=== PATIENT | male | born 1965 | race Caucasian/White ===

== ENCOUNTER 2024-05-28 14:05 | Inpatient (IN) ==
[2024-05-28] MEDS ORDERED: VANCOMYCIN CONSULT ACTIVE PRN (15:39)
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
[2024-05-28 16:42] LABS: Basophils # (auto) 0.07 K/uL (0.00-0.20); Basophils % (auto) 0.6 %; Eosinophils # (auto) 0.32 K/uL (0.00-0.50); Eosinophils % (auto) 2.7 %; Hematocrit (blood only) 41.8 % (42.0-52.0); Hemoglobin 13.7 g/dl (14.0-18.0); Immature Granulocytes # (auto) 0.25 K/uL (0.01-0.20); Immature Granulocytes % (auto) 2.1 %; Lymphocytes # (auto) 1.98 K/uL (1.20-3.40); Mean Corpuscular Hgb Conc 32.8 g/dL (32.0-36.0); Mean Corpuscular Volume 88.4 fL (80.0-100.0); Mean Platelet Volume 9.2 fL (9.4-12.4); Monocytes # (auto) 0.73 K/uL (0.11-0.59); Monocytes % (auto) 6.3 %; Neutrophils # (auto) 8.31 K/uL (1.40-6.50); Neutrophils % (auto) 71.3 %; Platelet Count 426 K/uL (130-400); RDW Coefficient of Variation 12.9 % (11.5-14.5); RDW Standard Deviation 41.9 fL (36.4-46.3); Red Blood Count 4.73 M/uL (4.70-6.10); White Blood Count 11.66 K/ul (4.8-10.8)
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
[2024-05-28] MEDS: VANCOMYCIN HCL 2,000 MG in SODIUM CHLORIDE 0.9% 500 ML IV ONE (16:46)
[2024-05-28] MEDS: metroNIDAZOLE 500 MG/100 ML BAG IV STA (16:46)
[2024-05-28] MEDS: CIPROFLOXACIN / D5W 400 MG/200 ML BAG IV STA (16:46)
[2024-05-28 16:57] LABS: Albumin Globulin Ratio 0.9 (0.9-2); Albumin Level 3.6 gm/dl (3.4-5.0); BUN Creatinine Ratio 39.5 (10-20); Bilirubin,Total 0.8 mg/dl (0.2-1.0); Calcium 8.9 mg/dl (8.6-10.3); Creatinine Clr Calc Pharmacy 254.9 ml/min; Globulin 4.2 gm/dl (2.5-4.0); Potassium 4.1 mmol/L (3.5-5.1); Total Protein 7.8 gm/dl (6.0-8.3)
[2024-05-28 17:04] LABS: Prothrombin Time 10.7 Seconds (9.0-12.0)
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
[2024-05-28] MEDS: OPTIRAY 320 125ml IV ONE (17:54)
--- NOTE | 2024-05-28 18:22 | CT Scan Report ---
Exam: Computed tomographic angiography of the abdomen, pelvis, and bilateral lower extremities with contrast Clinical information: Trauma Technique: Axial images obtained of the abdomen, pelvis, and lower extremities through the feet obtained following the injection of contrast media in the arterial phase. Source images reviewed as well as 3D and multi-planar reconstructions. Dose reduction techniques were achieved by using automatic exposure control and/or adjustment of mA and/or kV according to patient size and/or use of iterative reconstruction technique. Comparison: None Findings: Extensive subcutaneous blood products and air subjacent to an open wound about the anterior aspect of the lower leg. No active contrast extravasation within the area. The abdominal aorta is patent. No aortic aneurysm or dissection. Mild calcifications of the aorta and iliac arteries. There are 3 discrete right renal arteries that appear patent. There is a single left renal artery that appears patent. Remaining branches of the aorta appear patent, demonstrating mild scattered atherosclerosis. Moderately calcified internal iliac arteries. Mild multifocal areas of calcification throughout the superficial femoral and popliteal arteries which are patent. Moderately calcified proximal trifurcating arteries in the lower legs. There is good flow in the left lower extremity of the anterior and posterior tibial arteries into the foot. The left peroneal artery demonstrates flow to the ankle. Flow is seen in the right lower leg to the ankle of the posterior tibial and peroneal artery. Good flow is not seen of the anterior tibial artery beyond the level of the upper portion of the lower leg. Abdomen: The liver, spleen, pancreas adrenal glands, kidneys appear normal. The stomach, small and colon appear normal. Cholelithiasis. There is a rim calcified cystic lesion at the mid right kidney measuring 10 cm in length. Additional simple cysts are also seen. No worrisome osseous lesions. No acute bony abnormalities. The bones of the lower legs appear intact. Small fat-containing umbilical hernia and fat-containing inguinal hernias. Lower chest: Lung bases are clear, Impression: Extensive subcutaneous blood products and air related to open wound about the anterior aspect of the left lower leg beginning at the medial lower thigh. No active contrast extravasation to suggest continued hemorrhage. No underlying bony abnormality. The aorta and major branch vessels of the abdominal aorta, as well as the iliac arteries and major arteries of the thigh are patent with scattered atherosclerosis, as above. In the right lower leg, there is loss of flow of the anterior tibial artery at the superior portion of the lower leg, and significant stenosis or occlusion is not excluded. Remaining lower extremity vessels demonstrate flow to the foot or ankle, and do appear tenuous, however noting this may be related to contrast bolus timing. Electronically signed by Arcenio Church 05-28-2024 6:21 PM
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
[2024-05-28] MEDS ORDERED: KETOROLAC 30 MG/ML VIAL IV PRN (21:24)
[2024-05-28] MEDS ORDERED: IBUPROFEN 200 MG TAB PO PRN (21:24)
--- NOTE | 2024-05-28 21:25 | Ultrasound Report ---
Exam(s): US VENOUS LEFT LOWER EXTREMITY EXAM: US Duplex Left Lower Extremity Veins CLINICAL HISTORY: Reason for exam: LLE edema. TECHNIQUE: Real-time duplex ultrasound scan of the left lower extremity veins integrating B-mode two-dimensional vascular structure, Doppler spectral analysis, color flow Doppler imaging and compression. COMPARISON: No relevant prior studies available. FINDINGS: Deep veins: Unremarkable. No DVT in the visualized common femoral, femoral, proximal deep femoral or popliteal veins. The veins demonstrate normal color flow, are normally compressible, with normal phasic flow and/or augmentation response. Superficial veins: Unremarkable. No thrombus in the visualized great saphenous vein. Soft tissues: There is subcutaneous edema in the left calf as well as a focal 5.8 x 1.9 x 2.9 cm subcutaneous fluid collection. No popliteal cyst. IMPRESSION: 1. There is subcutaneous edema in the left calf as well as a focal 5.8 x 1.9 x 2.9 cm subcutaneous fluid collection. Consider seroma versus hematoma or abscess. 2. No evidence of DVT within the left lower extremity. Electronically signed by: Dayne Rodriguez MD 05/28/24 21:24 PM
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
[2024-05-28] MEDS: KETOROLAC TROMETHAMINE 15 MG/ML VIAL IV PRN (22:11)
[2024-05-28] MEDS: ATORVASTATIN 10 MG TAB PO SCH (22:28)
[2024-05-28] MEDS: carvediloL 12.5 MG TAB PO SCH (22:28)
[2024-05-28] MEDS: metroNIDAZOLE 500 MG/100 ML BAG IV SCH (22:28)
[2024-05-29] MEDS: CIPROFLOXACIN / D5W 400 MG/200 ML BAG IV SCH (04:02)
[2024-05-29] MEDS ORDERED: ATROPINE SULFATE 0.1 MG/ML 10ML SYR IV PRN (07:55)
[2024-05-29] MEDS ORDERED: HYDROmorphone INJ 1 MG/ML SYRINGE IV PRN ×2 (07:55→12:47)
[2024-05-29] MEDS ORDERED: fentaNYL citrate PF 100 MCG/2 ML VIAL IV PRN (07:55)
[2024-05-29] MEDS ORDERED: ePHEDrine sulfate 50 MG/ML AMP IV PRN (07:55)
[2024-05-29] MEDS ORDERED: ONDANSETRON INJ 2 MG/ML 2 ML VIAL IV PRN (07:55)
--- NOTE | 2024-05-29 07:55 | Anesthesiology Consultation ---
Date of Service May 29, 2024 Assessment & Plan Chart Review Chart Review: Acceptable Risk for Surgery and Patient NOT seen in Pre Admission Testing Consults Requested none History Surgery Operation Date: 05/29/24 07:00 Proposed Procedures p Left Lower Extremity Wound Debridement - Guille Marie DO Height/Weight Height: 5 ft 10 in Weight: 128.2 kg Allergies Allergy/AdvReac Type Severity Reaction Status Date / Time morphine Allergy Verified 08/05/19 10:54 Penicillins Allergy Verified 08/05/19 10:54 Medications Home Medications Medication Instructions Recorded Confirmed Last Taken amlodipine 10 mg tablet 10 mg PO DAILY 05/28/24 05/28/24 Unknown atorvastatin 10 mg tablet 10 mg PO HS 05/28/24 05/28/24 Unknown carvedilol 12.5 mg tablet 12.5 mg PO BID 05/28/24 05/28/24 Unknown dapagliflozin propanediol 10 mg 10 mg PO DAILY 05/28/24 05/28/24 Unknown tablet (Farxiga) dulaglutide 4.5 mg/0.5 mL 4.5 mg subcut WK 05/28/24 05/28/24 Unknown subcutaneous pen injector ([facility] [place]) gabapentin 100 mg capsule 100 mg PO TID 05/28/24 05/28/24 Unknown tizanidine 4 mg tablet 4 mg PO Q12 PRN Muscle Pain 05/28/24 05/28/24 Unknown valsartan 320 mg tablet 320 mg PO DAILY 05/28/24 05/28/24 Unknown Active Medications Generic Name Dose Route Start Last Admin Trade Name Freq PRN Reason Stop Dose Admin Atorvastatin Calcium 10 mg 05/28/24 21:45 05/28/24 22:28 Atorvastatin 10 Mg Tab PO 06/27/24 21:44 Not Given HS [facility] Carvedilol 12.5 mg 05/28/24 21:45 05/28/24 22:28 Carvedilol 12.5 Mg Tab PO 06/27/24 21:44 Not Given BIDM [facility] Metronidazole 500 mg in 100 mls @ 100 mls/hr 05/28/24 22:00 05/29/24 07:24 Flagyl IV 06/04/24 21:59 Infused Q8H [facility] Infusion Protocol Ciprofloxacin 400 mg in 200 mls @ 100 mls/hr 05/29/24 05:00 05/29/24 06:02 Cipro / D5w IV 06/05/24 04:59 Infused Q12H [facility] Infusion Protocol Ketorolac Tromethamine 15 mg 05/28/24 21:24 05/29/24 07:15 Ketorolac Tromethamine 15 Mg/Ml Vial IV 06/02/24 21:23 15 mg Q6H PRN Administration Pain & Pre PT Past Family History Family History Father Prostate cancer Diabetes Uncle Prostate cancer Mother Diabetes Heart disease Cancer Brother Nephrolithiasis Past Surgical History Surgical History No history of previous surgery Social History Smoking Status: Heavy tobacco smoker Smoking cigarettes per day: 3 packs Hx Alcohol Use: No Hx Substance Use: No Physical Exam Vital Signs Last Vital Signs Temp 36.5 C 05/29/24 06:57 Pulse 82 05/29/24 06:57 Resp 16 05/29/24 06:57 BP 173/73 H 05/29/24 06:57 Pulse Ox 93 05/29/24 06:57 O2 Del Method Room Air 05/29/24 06:57 Testing Laboratory Results 05/28/24 16:22 05/28/24 16:22 PT 10.7 Seconds (9.0-12.0) 05/28/24 16:22 INR 1.0 (0.9-1.1) 05/28/24 16:22 05/29/24 05/28/24 07:32 21:26 POC Glucose 215 H 167 H
[2024-05-29 08:26] LABS: Hematocrit (blood only) 37.4 % (42.0-52.0); Hemoglobin 12.1 g/dl (14.0-18.0); Mean Corpuscular Hemoglobin 28.9 pg (25.0-34.0); Mean Corpuscular Hgb Conc 32.4 g/dL (32.0-36.0); Mean Corpuscular Volume 89.3 fL (80.0-100.0); Platelet Count 408 K/uL (130-400); RDW Coefficient of Variation 13.1 % (11.5-14.5); RDW Standard Deviation 42.8 fL (36.4-46.3); Red Blood Count 4.19 M/uL (4.70-6.10); White Blood Count 9.49 K/ul (4.8-10.8)
[2024-05-29 08:35] LABS: BUN Creatinine Ratio 40.5 (10-20); C Reactive Protein 10.15 mg/dl (0-0.5); Calcium 8.4 mg/dl (8.6-10.3); Creatinine Clr Calc Pharmacy 296.2 ml/min; Potassium 3.9 mmol/L (3.5-5.1)
[2024-05-29] MEDS ORDERED: VALSARTAN 80 MG TAB PO SCH (09:00)
[2024-05-29] MEDS ORDERED: PROPOFOL IV EMULSION 10 MG/ML 20 ML VIAL IV ONE ×2 (09:17→09:22)
[2024-05-29] MEDS ORDERED: SUCCINYLCHOLINE CHLORIDE 20 MG/ML 10 ML VIAL IV ONE (09:17)
[2024-05-29] MEDS ORDERED: ONDANSETRON INJ 2 MG/ML 2 ML VIAL ONE (09:17)
[2024-05-29] MEDS ORDERED: DEXAMETHASONE SOD INJ 4 MG/ML VIAL ONE (09:17)
[2024-05-29] MEDS ORDERED: MIDAZOLAM HCL 1 MG/ML 2ML VIAL ONE (09:18)
[2024-05-29] MEDS ORDERED: fentaNYL citrate PF 100 MCG/2 ML VIAL ONE (09:18)
--- NOTE | 2024-05-29 09:43 | History & Physical Bridge Note ---
Date of Service May 29, 2024 History & Physical Bridge Note I have examined the patient, reviewed the History & Physical and in the interval since the performance of the History & Physical I have noted the following changes of clinical significance: no changes noted
[2024-05-29] MEDS: ALBUT/IPRATROP 3MG/0.5MG NEB 3 ML VIAL NEB STA (09:47)
[2024-05-29] MEDS ORDERED: GLYCOPYRROLATE 0.2 MG/ML VIAL ONE (10:25)
[2024-05-29] MEDS ORDERED: PHENYLEPHRINE HCL 10 MG/ML VIAL ONE (10:44)
[2024-05-29] MEDS ORDERED: ePHEDrine sulfate 50 MG/5 ML SYR ONE (10:44)
[2024-05-29] MEDS ORDERED: PHENYLEPHRINE 100MCG/ML 5ML SYR ONE (10:44)
[2024-05-29 10:52] LABS: Estimated Average Glucose 197 mg/dl; Hemoglobin A1C 8.5 % (4.5-5.6)
[2024-05-29] MEDS: BUPIVACAINE/EPINEPHRINE 0.5% MPF 1:200,000 30 ML VIAL ONE (10:59)
--- NOTE | 2024-05-29 11:08 | Operative Report ---
PG Post Operative Report Pre & Post Diagnosis Operation Date: 05/29/24 07:00 Pre-Op Diagnosis: Left Lower Extremity Cellulitis, Tissue Necrosis Post-Op Diagnosis: Left Lower Extremity Cellulitis, Tissue Necrosis;abcess I identified the patient and participated in the time-out.: Yes Procedure Operation Date: 05/29/24 07:00 Actual Procedures p Left Lower Extremity Wound Debridement(Left) ( sharp debridement including fascia); drainage of lower extremity abcesses x 2- Guille Marie DO Surgeon Guille Marie DO Filbert Grower cam Chin Estimated Blood Loss 50 Findings Consistent with Post-Op Diagnosis Specimens abcess fluid for culture/sensitivity Description of Procedure After informed consent was obtained the patient was taken to the operating room and placed in supine position. After successful placement of a laryngeal mask airway the lower extremity was sterilely prepped and draped in usual fashion. I began with the upper wound. I used a 15 blade scalpel to sharply divide the eschar full-thickness. During this process I immediately encountered a large abscess pocket which appeared to be an abscessed hematoma. After removing all of the eschar I then suctioned out the entire abscess. It did not have a bad odor. This was carried down and the debridement included skin and soft tissue as well as some fascia. We then thoroughly irrigated the wound. This wound measured 7 cm x 4 cm x 1 cm. We did take a sample of the fluid and sent for Gram stain and culture. I used exact same technique for the lower wound. Again after sharply debriding the black eschar we encountered an abscess cavity. I remove the eschar full-thickness which again included skin subcutaneous tissue and some fascia. We thoroughly irrigated this wound as well. This wound measured 16 cm x 6 cm x 2 cm. We packed both wounds with 1 inch iodoform packing. Gauze 4 x 4's, ABD pads, and gauze Stephanie were used as a dressing. The patient was awakened extubated and transferred to recovery in stable condition. My physician assistant engineer was present for the entire case and assisted in all aspects of the procedure. I attest to the content of the Intraoperative Record and any orders documented therein. Any exceptions are noted below.
--- NOTE | 2024-05-29 11:59 | Anesthesiology Progress Note ---
Date of Service May 29, 2024 Anesthesia Post Procedure Vital Signs Vital Signs: Temp Pulse Pulse Pulse Resp BP BP 05/29/24 11:55 36.7 C 87 17 130/69 05/29/24 11:45 86 20 119/77 05/29/24 11:35 87 17 118/68 05/29/24 11:25 88 20 110/66 05/29/24 11:15 90 19 112/71 05/29/24 11:06 36.0 C L 94 H 18 108/64 05/29/24 09:47 81 16 05/29/24 09:17 36.9 C 81 20 154/98 H 05/29/24 06:57 36.5 C 82 16 173/73 H 05/28/24 22:14 36.8 C 86 20 156/56 H 05/28/24 20:52 36.7 C 78 20 170/90 H 05/28/24 18:07 84 16 143/82 H 05/28/24 17:01 85 18 135/81 05/28/24 14:20 36.8 C 87 20 142/77 H Pulse Ox O2 Del Method O2 Flow Rate 05/29/24 11:55 95 Nasal Cannula 2 05/29/24 11:45 93 Nasal Cannula 2 05/29/24 11:35 96 Nasal Cannula 2 05/29/24 11:25 92 Nasal Cannula 4 05/29/24 11:15 97 Nasal Cannula 4 05/29/24 11:06 90 Nasal Cannula 4 05/29/24 09:47 92 Room Air 05/29/24 09:17 92 Room Air 05/29/24 06:57 93 Room Air 05/28/24 22:14 92 Room Air 05/28/24 20:52 94 Room Air 05/28/24 18:07 93 Room Air 05/28/24 17:01 96 Room Air 05/28/24 14:20 94 Room Air Pain Intensity Left Calf: Pain Intensity: 4 Transfer of Care Handoff Completed per policy Notes Mental Status: alert / awake / arousable Patient Amnestic to Procedure: Yes Nausea / Vomiting: adequately controlled Pain: adequately controlled Airway Patency, RR, SpO2: stable & adequate BP & HR: stable & adequate Hydration State: stable & adequate Anesthetic Complications: no major complications apparent and Pt Satisfied with anesthetic care
[2024-05-29] MEDS ORDERED: MoRPHine SULFATE 2 MG/ML CARP IV PRN (12:10)
[2024-05-29] MEDS ORDERED: MoRPHine SULFATE 4 MG/ML 1 ML CARP\\VIAL IV PRN (12:10)
[2024-05-29] MEDS: amLODIPine BESYLATE 5 MG TAB PO SCH (12:44)
[2024-05-29] MEDS: GABAPENTIN 100 MG CAP PO SCH (12:44)
[2024-05-29] MEDS ORDERED: GLUCOSE 40% GEL 15 GM TUBE PO PRN (12:45)
[2024-05-29] MEDS ORDERED: CARBOHYDRATES FOR HYPOGLYCEMIA PO PRN (12:45)
[2024-05-29] MEDS ORDERED: GLUCOSE 10 TAB/TUBE PO PRN (12:45)
[2024-05-29] MEDS ORDERED: DEXTROSE 50% 50 ML SYRINGE IV PRN (12:45)
[2024-05-29] MEDS ORDERED: GLUCAGON FOR INJ 1 MG VIAL SQ PRN (12:45)
[2024-05-29] MEDS: INSULIN ASPART PER UNIT CHARGE SC ONE (13:26)
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
[2024-05-29] MEDS: DAPTOmycin 400 MG in SYRINGE 0 ML IV SCH (16:34)
[2024-05-29] MEDS: INSULIN ASPART PER UNIT CHARGE SC SCH ×2 (17:13→20:35)
[2024-05-29] MEDS ORDERED: PHARMACY GLYCEMIC MGMT CONSULT PRN (17:47)
[2024-05-29] MEDS: LANTUS PER UNIT CHARGE SC SCH (19:59)
[2024-05-30] MEDS: INSULIN ASPART PER UNIT CHARGE SC SCH (00:09)
[2024-05-30] MEDS: oxyCODONE HCL IR 5 MG TAB (IMMEDIATE RELEASE) PO PRN (06:21)
[2024-05-30 07:35] LABS: Hematocrit (blood only) 34.6 % (42.0-52.0); Hemoglobin 11.5 g/dl (14.0-18.0); Mean Corpuscular Hemoglobin 29.3 pg (25.0-34.0); Mean Corpuscular Hgb Conc 33.2 g/dL (32.0-36.0); Mean Corpuscular Volume 88.3 fL (80.0-100.0); Platelet Count 409 K/uL (130-400); RDW Coefficient of Variation 12.7 % (11.5-14.5); RDW Standard Deviation 41.1 fL (36.4-46.3); Red Blood Count 3.92 M/uL (4.70-6.10); White Blood Count 10.37 K/ul (4.8-10.8)
[2024-05-30 07:50] LABS: BUN Creatinine Ratio 38.9 (10-20); C Reactive Protein 5.53 mg/dl (0-0.5); Calcium 8.2 mg/dl (8.6-10.3); Creatinine Clr Calc Pharmacy 326.6 ml/min; Potassium 3.8 mmol/L (3.5-5.1)
[2024-05-30] MEDS: LANTUS PER UNIT CHARGE SC SCH ×2 (08:34→21:08)
--- NOTE | 2024-05-30 08:55 | Surgery Progress Note ---
Date of Service May 30, 2024 Assessment & Plan (1) Leg wound, left: Plan: POD#1 left lower extremity wound debridement WBC 10.3, Hbg 11.5. Vital signs are stable OR cultures are pending, he remains on IV abx He is overall doing well post op and dressings remain in place Wound care consult has been placed for consideration of vac placement & dressing recommendations Will need case management on board for d/c planning Admission and Anticipated Discharge Date Admission Date: May 28, 2024 Subjective Patient is doing okay. Does have some expected post op pain that is being managed with pain meds. Otherwise dressing has remained in tact overnight and has no other complaints. Physical Exam Physical Exam: awake/alert, no distress Respiratory: normal respiratory effort Skin: LLE surgical dressing remains in place (1" iodoform packing, gauze/ABD/ and jonathon wrap) Results & Data Vital Signs (Past 12 Hours) Vital Signs Temp Pulse Resp BP Pulse Ox O2 Del Method 05/30/24 07:22 97.3 F L 73 16 151/85 H 91 Room Air 05/30/24 04:19 98.1 F 72 18 150/76 H 92 Room Air 05/29/24 23:00 97.7 F 69 18 144/81 H 93 Room Air PG Care Time/CCT Total # of Minutes Spent Total Time Spent with Patient: Total time spent is greater than 50% in coordination of care (as documented) at patient's floor/unit and/or counseling patient: Coding Level of Care Code 14335 Post Operative Follow-Up Diagnoses Leg wound, left S81.802A
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
[2024-05-30] MEDS: ENOXAPARIN INJ 40 MG/0.4 ML SYR SQ SCH (09:10)
[2024-05-30] MEDS: HYDROmorphone INJ 0.5 MG/0.5 ML SYR IV PRN (13:31)
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
[2024-05-31 07:32] LABS: Hematocrit (blood only) 37.3 % (42.0-52.0); Hemoglobin 12.7 g/dl (14.0-18.0); Mean Platelet Volume 8.6 fL (9.4-12.4); Platelet Count 426 K/uL (130-400); RDW Coefficient of Variation 12.8 % (11.5-14.5); RDW Standard Deviation 41.2 fL (36.4-46.3); Red Blood Count 4.24 M/uL (4.70-6.10); White Blood Count 10.25 K/ul (4.8-10.8)
[2024-05-31 07:59] LABS: BUN Creatinine Ratio 29.7 (10-20); C Reactive Protein 2.73 mg/dl (0-0.5); Calcium 8.4 mg/dl (8.6-10.3); Creatinine Clr Calc Pharmacy 317.7 ml/min; Potassium 3.9 mmol/L (3.5-5.1)
[2024-05-31] MEDS: LANTUS PER UNIT CHARGE SC SCH (08:55)
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
--- NOTE | 2024-05-31 12:12 | Surgery Progress Note ---
Date of Service May 31, 2024 Assessment & Plan (1) Leg wound, left: Plan: POD#2 left lower extremity wound debridement WBC 10.2. Pt afebrile OR cultures thus far growing staph aureus, he remains on IV abx He is overall doing and an irrigating wound vac was placed yesterday Appreciate wound care's assistance, will need set up for wound vac at home Will need case management on board for d/c planning We are okay with discharge once home vac approved in addition to home health vs. wound care center f/u is established Abx will be adjusted pending sensitivities per medicine we will sign off at this time, please call with any questions/concerns. may f/u in 1-2 weeks in the office for check up Admission and Anticipated Discharge Date Admission Date: May 28, 2024 Subjective Patient is feeling well. Has wound vac in place. Some post op pain expected but is manageable. Physical Exam Physical Exam: awake/alert, no distress Musculoskeletal: LLE with irrigating wound vac in place Results & Data Vital Signs (Past 12 Hours) Vital Signs Temp Pulse Resp BP Pulse Ox O2 Del Method 05/31/24 07:45 Room Air 05/31/24 07:18 98.1 F 70 16 163/87 H 93 Room Air PG Care Time/CCT Total # of Minutes Spent Total Time Spent with Patient: Total time spent is greater than 50% in coordination of care (as documented) at patient's floor/unit and/or counseling patient: Coding Level of Care Code 37498 Post Operative Follow-Up Diagnoses Leg wound, left S81.802A
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
[2024-06-01 07:36] LABS: Hematocrit (blood only) 37.4 % (42.0-52.0); Hemoglobin 12.4 g/dl (14.0-18.0); Mean Corpuscular Hgb Conc 33.2 g/dL (32.0-36.0); Mean Corpuscular Volume 87.4 fL (80.0-100.0); Mean Platelet Volume 8.5 fL (9.4-12.4); Platelet Count 433 K/uL (130-400); Red Blood Count 4.28 M/uL (4.70-6.10); White Blood Count 10.33 K/ul (4.8-10.8)
[2024-06-01 08:14] LABS: BUN Creatinine Ratio 26.7 (10-20); Calcium 8.4 mg/dl (8.6-10.3); Creatinine Clr Calc Pharmacy 261.2 ml/min
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
[2024-06-01] MEDS: INSULIN ASPART PER UNIT CHARGE SC SCH (12:27)
[2024-06-01] MEDS: ACETAMINOPHEN 325 MG TAB PO PRN (12:31)
[2024-06-01] MEDS: metroNIDAZOLE 500 MG/100 ML BAG IV SCH (12:32)
[2024-06-02 07:20] LABS: Hematocrit (blood only) 37.6 % (42.0-52.0); Hemoglobin 12.2 g/dl (14.0-18.0); Mean Corpuscular Hemoglobin 28.9 pg (25.0-34.0); Mean Corpuscular Hgb Conc 32.4 g/dL (32.0-36.0); Mean Corpuscular Volume 89.1 fL (80.0-100.0); Mean Platelet Volume 8.5 fL (9.4-12.4); Platelet Count 445 K/uL (130-400); RDW Standard Deviation 41.8 fL (36.4-46.3); Red Blood Count 4.22 M/uL (4.70-6.10); White Blood Count 11.25 K/ul (4.8-10.8)
[2024-06-02 07:39] LABS: Calcium 8.5 mg/dl (8.6-10.3); Creatinine Clr Calc Pharmacy 235.1 ml/min; Potassium 4.5 mmol/L (3.5-5.1)
[2024-06-02] MEDS: oxyCODONE HCL IR 5 MG TAB (IMMEDIATE RELEASE) PO PRN (07:59)
[2024-06-02] MEDS: INSULIN ASPART PER UNIT CHARGE SC SCH (08:14)
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
[2024-06-03 07:32] LABS: Basophils # (auto) 0.07 K/uL (0.00-0.20); Basophils % (auto) 0.7 %; Eosinophils # (auto) 0.36 K/uL (0.00-0.50); Eosinophils % (auto) 3.4 %; Hematocrit (blood only) 36.6 % (42.0-52.0); Immature Granulocytes # (auto) 0.07 K/uL (0.01-0.20); Immature Granulocytes % (auto) 0.7 %; Lymphocytes # (auto) 2.35 K/uL (1.20-3.40); Lymphocytes % (auto) 22.1 %; Mean Corpuscular Hemoglobin 29.1 pg (25.0-34.0); Mean Corpuscular Hgb Conc 32.8 g/dL (32.0-36.0); Mean Corpuscular Volume 88.8 fL (80.0-100.0); Mean Platelet Volume 8.4 fL (9.4-12.4); Monocytes # (auto) 0.97 K/uL (0.11-0.59); Monocytes % (auto) 9.1 %; Neutrophils # (auto) 6.82 K/uL (1.40-6.50); Platelet Count 399 K/uL (130-400); RDW Coefficient of Variation 13.2 % (11.5-14.5); RDW Standard Deviation 43.1 fL (36.4-46.3); Red Blood Count 4.12 M/uL (4.70-6.10); White Blood Count 10.64 K/ul (4.8-10.8)
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
[2024-06-04 06:51] VITALS: BP 128/69; PULSE 62; RESP 18; TEMP 97.7; O2SAT 95
[2024-06-04] MEDS ORDERED: Nursing to Pharmacy Communication SCH (12:15)
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
== END 2024-06-04 15:32 | disposition home health service (06) | DRG 571 ==
LOC: ED 14:05 → 3N 20:11 → SUATTDRO 20:11 → 3N 20:52

== ENCOUNTER 2024-06-12 15:56 | Inpatient (IN) ==
[2024-06-12 16:28] LABS: Basophils # (auto) 0.07 K/uL (0.00-0.20); Basophils % (auto) 0.7 %; Eosinophils # (auto) 0.32 K/uL (0.00-0.50); Eosinophils % (auto) 3.4 %; Hematocrit (blood only) 43.9 % (42.0-52.0); Hemoglobin 14.4 g/dl (14.0-18.0); Immature Granulocytes # (auto) 0.05 K/uL (0.01-0.20); Immature Granulocytes % (auto) 0.5 %; Lymphocytes # (auto) 2.49 K/uL (1.20-3.40); Lymphocytes % (auto) 26.1 %; Mean Corpuscular Hemoglobin 29.6 pg (25.0-34.0); Mean Corpuscular Hgb Conc 32.8 g/dL (32.0-36.0); Mean Corpuscular Volume 90.1 fL (80.0-100.0); Mean Platelet Volume 9.6 fL (9.4-12.4); Monocytes # (auto) 0.81 K/uL (0.11-0.59); Monocytes % (auto) 8.5 %; Neutrophils % (auto) 60.8 %; Platelet Count 307 K/uL (130-400); RDW Coefficient of Variation 14.6 % (11.5-14.5); RDW Standard Deviation 46.6 fL (36.4-46.3); Red Blood Count 4.87 M/uL (4.70-6.10); White Blood Count 9.54 K/ul (4.8-10.8)
[2024-06-12 16:42] LABS: Alanine Aminotransferase 14 U/L (7-52); Albumin Globulin Ratio 1.2 (0.9-2); Albumin Level 3.8 gm/dl (3.4-5.0); Alkaline Phosphatase 46 U/L (34-104); Anion Gap 5 (3-11); Aspartate Aminotransferase 15 U/L (13-39); Bilirubin,Total 0.4 mg/dl (0.2-1.0); Blood Urea Nitrogen 12 mg/dl (6-23); Carbon Dioxide 29 mmol/L (21-32); Chloride 104 mmol/L (98-107); Globulin 3.2 gm/dl (2.5-4.0); Glucose 142 mg/dl (70-99(Fasting)); Potassium 4.1 mmol/L (3.5-5.1); Sodium 138 mmol/L (136-145)
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
[2024-06-12] MEDS: cefTRIAXone SODIUM 2,000 MG/50 ML BAG IV STA (20:44)
[2024-06-12] MEDS: metroNIDAZOLE 500 MG/100 ML BAG IV STA (20:47)
[2024-06-12] MEDS ORDERED: POLYETHYLENE (MIRALAX) 17 GM PACK PO PRN (23:59)
[2024-06-12] MEDS ORDERED: GLUCOSE 40% GEL 15 GM TUBE PO PRN (23:59)
[2024-06-12] MEDS ORDERED: GLUCOSE 10 TAB/TUBE PO PRN (23:59)
[2024-06-12] MEDS ORDERED: tiZANidine HCL 4 MG TABLET PO PRN (23:59)
[2024-06-12] MEDS ORDERED: ONDANSETRON INJ 2 MG/ML 2 ML VIAL IV PRN (23:59)
[2024-06-12] MEDS ORDERED: ACETAMINOPHEN 325 MG TAB PO PRN (23:59)
[2024-06-12] MEDS ORDERED: CARBOHYDRATES FOR HYPOGLYCEMIA PO PRN (23:59)
[2024-06-12] MEDS ORDERED: GLUCAGON FOR INJ 1 MG VIAL SQ PRN (23:59)
[2024-06-12] MEDS ORDERED: DEXTROSE 50% 50 ML SYRINGE IV PRN (23:59)
[2024-06-13] MEDS: oxyCODONE HCL IR 5 MG TAB (IMMEDIATE RELEASE) PO PRN (00:23)
[2024-06-13] MEDS: INSULIN ASPART PER UNIT CHARGE SC SCH (00:30)
[2024-06-13] MEDS: ATORVASTATIN 10 MG TAB PO SCH (00:31)
[2024-06-13] MEDS: GABAPENTIN 100 MG CAP PO SCH (00:31)
[2024-06-13] MEDS: carvediloL 12.5 MG TAB PO SCH (00:31)
[2024-06-13] MEDS: metroNIDAZOLE 500 MG/100 ML BAG IV SCH (04:51)
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
[2024-06-13] MEDS: LANTUS PER UNIT CHARGE SQ SCH (08:45)
[2024-06-13] MEDS: VALSARTAN 80 MG TAB PO SCH (08:47)
[2024-06-13] MEDS: amLODIPine BESYLATE 5 MG TAB PO SCH (08:48)
[2024-06-13 09:27] LABS: Hemoglobin 13.4 g/dl (14.0-18.0); Mean Corpuscular Hemoglobin 29.5 pg (25.0-34.0); Mean Corpuscular Hgb Conc 32.7 g/dL (32.0-36.0); Mean Corpuscular Volume 90.1 fL (80.0-100.0); Mean Platelet Volume 9.8 fL (9.4-12.4); Platelet Count 257 K/uL (130-400); RDW Coefficient of Variation 14.7 % (11.5-14.5); RDW Standard Deviation 47.6 fL (36.4-46.3); Red Blood Count 4.55 M/uL (4.70-6.10); White Blood Count 8.29 K/ul (4.8-10.8)
[2024-06-13 09:31] LABS: Calcium 8.9 mg/dl (8.6-10.3); Creatinine Clr Calc Pharmacy 264.2 ml/min; Potassium 4.1 mmol/L (3.5-5.1)
--- NOTE | 2024-06-13 11:31 | Surgery Progress Note ---
Date of Service June 13, 2024 Assessment & Plan (1) Traumatic open wound of left lower leg: Plan 58M with traumatic LLE wound presented at the direction of outpatient wound care practitioners for the concern of infection when wound vac was last removed. Wet to dry dressings were initiated at that time. This wound would benefit from some debridement in the OR. Plan for OR debridement tomorrow. Patient is agreeable this am and will obtain consent. NPO after MN. Continue other modes of medical management that have been initiated. Admission and Anticipated Discharge Date Admission Date: June 12, 2024 Subjective I have seen and examined this patient this am. He denies N/V, F/C Physical Exam Constitutional: + obese; not ill appearing, not in distr ess and not diaphoretic Respiratory: normal respiratory effort; no respiratory distress, no labored breathing and does not use accessory muscles Skin: LLE with wound at anterior tibial region Wound down to musce centrally Areas of necrotic fat and sloughed debris are evident this am Results & Data Vital Signs (Past 12 Hours) Vital Signs Temp Pulse Resp BP BP Pulse Ox O2 Del Method 06/13/24 06:56 36.7 C 71 16 148/81 H 91 Room Air 06/13/24 00:09 36.6 C 76 18 159/96 H 96 Room Air PG Care Time/CCT Total # of Minutes Spent Total Time Spent with Patient: Total time spent is greater than 50% in coordination of care (as documented) at patient's floor/unit and/or counseling patient: Coding Level of Care Code 38711 SUB INP/OBS CARE 06/15MIN Diagnoses Traumatic open wound of left lower leg, subsequent encounter S81.802D Encounter type: subsequent encounter (1) Traumatic open wound of left lower leg Encounter type: subsequent encounter Qualified Code(s): S81.802D - Unspecified open wound, left lower leg, subsequent encounter
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
[2024-06-13] MEDS: MEROPENEM 500 MG in SYRINGE 0 ML IV SCH (15:43)
[2024-06-13] MEDS: CLINDAMYCIN/D5W 600 MG/50 ML BAG IV SCH (15:48)
[2024-06-13] MEDS: ENOXAPARIN INJ 60 MG/0.6 ML SYR SQ ONE (16:29)
[2024-06-13] MEDS ORDERED: cefTRIAXone SODIUM 2,000 MG/50 ML BAG IV SCH (19:00)
[2024-06-13] MEDS ORDERED: Nursing to Pharmacy Communication SCH (20:45)
[2024-06-14] MEDS ORDERED: Nursing to Pharmacy Communication SCH (06:15)
[2024-06-14] MEDS: INSULIN ASPART PER UNIT CHARGE SC SCH ×2 (06:15→21:07)
--- NOTE | 2024-06-14 08:01 | Hospitalist Progress Note ---
Date of Service June 14, 2024 Assessment & Plan (1) Wound of left lower extremity: Plan: 58yo male presenting with LLE wound. Initial trauma 05/17 but waited til 05/28 to present to ER here and had necrotic tissue and underwent debridement in OR on 05/29 for drainage [address] Marie and dc on Doxy/Flagyl to complete course but was seen by wound care during home health visit with concerns for progression/infection needing intervention and sent to ER. Notable his procal on admission was 1.84 and no blood cultures noted but was trending down/0.29 prior to discharge but do have concerns for possible issue w/ longer standing infection prior to presentation along with possible inadequate coverage for OR culture 05/29 with staph auresus, paeniclostridium sordelli, anaerobic gram positive bacilli Surgery consulted, discussed with Dr Colmenares and wound care AM 06/13 given necrotic tissue/need for debridement prior to wound vac and plan for OR in AM 06/14 for debridement and wound care to follow Sent for blood cultures 06/13 -- pending. notable procal checked and to 0.03 from prior elevations and was done for completeness ID consulted/discussed with on 06/13 Ceftriaxone/Flagyl IV ordered concerns given OR culture/procal last admission CHANGED ABX 06/13 --> Ceftriaxone --> MEROPENEM (no issues reported, hx PCN allergy, unable to utilize ZOSYN), Ceftriaxone not ideal for MSSA --> Flagyl --> CLINDAMYCIN Pain control: APAP/oxycodone, tolerated dilaudid and 0.5mg for breakthrough but also given 15mg IV toradol this morning and can continue (reported helpful) +BM this morning, monitor on abx IVF @ 80cc/hr for now, OR planned for this afternoon. DVT proph: was given Lovenox SQ x 1 on 06/13, defer ongoing until determined safe to resume from surgery Wound RN to f/u following, likely placement for wound vac Monitor labs/exam, follow inflammatory markers from today in next 48hrs PT/OT consulted, he is agreeable to rehab if needed Smoking cessation encouraged (2) Cellulitis: Plan: 2nd to above, improving w/ treatment but needing debridement and for OR today (3) Hypertension: Plan: BP stable 129/77- continued on coreg 12.5mg BID, valsartan 320mg daily, amlodipine 10mg daily Placed orders to hold valsartan for AM 06/15 post op and can resume if BP stable w/ stable renal function (4) Diabetes mellitus, type 2: Plan: A1c 8.5 this month On farxiga at baseline, on hold for now BSG AC/HS and sliding scale insulin have been ordered BSGs appear stable at this time and will continue current goal range/parameters/monitor to adjust if needed for better control/wound healing but did have nursing give half dose this AM given NPO for OR status and will continue to monitor Continue Gabapentin 100mg po TID, B12 borderline 346 and PO supp started in am/would continue at dc (5) Traumatic open wound of left lower leg: Plan Chronic Medical Conditions Hyperlipidemia-Continue Atorvastatin 10mg po qHS, lipids checked/increased to 20mg HS for risk prevention. Monitor in f/u Dispo: NPO for OR this afternoon, will need continued wound care/likely wound vac, PT/OT consults to follow and rehab if rec'd as patient agreeable DVT proph: Lovenox as outlined, resume in AM if ok per surgery Admission and Anticipated Discharge Date Admission Date: June 13, 2024 Supervising Physician Co-Signing Physician Notes The patient was not seen by me. The chart was reviewed. Case discussed with NUHA Quick. Agree with assessment and plan Subjective Evaluated this morning, clarified w/ surgery ok to take AM meds w/ sip water. IVF added while NPO. No rash/issues w/ meropenem and remains on w/ clinda per ID. Was given dose oxy/toradol for pain w/ reported improvement. Tolerated Dilaudid in past/allergy to morphine and discussed Dilaudid will be available. F/u cxs/exam, wound vac likely/wound RN to follow up. Needing to move his bowels, RN notified. Discussed w/ therapy for evals in AM, NWB for now (crutches in room), likely WBAT but cautious use for now. Agreeable to rehab if needed. Questions/concerns addressed at this time. Physical Exam 2 Physical Exam: General: 58 yo obese male sitting up in bed, NAD, pain improved since medications this morning, waiting OR/needing to move his bowels HEENT: head atraumatic, normocephalic, mmm, trachea midline Resp: even/unlabored, diminished in the bases but no wheezing/rales, 94% on AX CV: RRR, no significant m/r/g, edema to affected leg but cap refill wnl, pulses present GI: +BS, obese, slight distension but SOFT/NT : no waite MSK/Neuro: LLE with 2 wounds noted: anterior tibial region down to muscle/fascia on medial aspect prior noted w/ lateral aspect w/ necrotic tissue suspected benefit from debridement anterior thigh wound w/ scant necrotic tissue DRESSED TODAY, did note remove as for OR this morning but c/d/i, sensation present, pulses present, erythema appears to be improving Psych: AOx3, cooperative with exam Results & Data Results & Data Vital Signs (Past 12 Hours) Vital Signs Temp Pulse Resp BP BP Pulse Ox O2 Del Method 06/14/24 07:04 36.5 C 68 16 124/70 93 Room Air 06/13/24 22:44 Room Air 06/13/24 19:58 36.7 C 64 18 128/67 92 Room Air Laboratory Results 06/14/24 07:55 06/14/24 07:55 ESR 40 CRP 1.01 Lipids: TRG 220, Cholesterol 98, LDL 25, HDL 29 B12 326 Folate 11.03 Iron panel> Fe 45, TIBC 225, transferrin 161, %sat 20, ferritin 234 Mag 1.8 PG Care Time/CCT Total # of Minutes Spent Total Time Spent with Patient: Total time spent is greater than 50% in coordination of care (as documented) at patient's floor/unit and/or counseling patient: Coding Level of Care Code 98124 SUB INP/OBS CARE 3/50MIN Diagnoses Wound of left lower extremity S81.802A Encounter type: initial encounter Cellulitis L03.90 Site of cellulitis: unspecified site Hypertension I10 Diabetes mellitus, type 2 E11.9 Traumatic open wound of left lower leg, subsequent encounter S81.802D Encounter type: subsequent encounter (1) Wound of left lower extremity Encounter type: initial encounter Qualified Code(s): S81.802A - Unspecified open wound, left lower leg, initial encounter (2) Cellulitis Site of cellulitis: unspecified site Qualified Code(s): L03.90 - Cellulitis, unspecified (5) Traumatic open wound of left lower leg Encounter type: subsequent encounter Qualified Code(s): S81.802D - Unspecified open wound, left lower leg, subsequent encounter
[2024-06-14] MEDS: SODIUM CHLORIDE 0.9% 1,000 ML IV SCH (08:13)
[2024-06-14] MEDS: KETOROLAC TROMETHAMINE 15 MG/ML VIAL IV ONE (08:20)
[2024-06-14 08:40] LABS: Basophils # (auto) 0.05 K/uL (0.00-0.20); Basophils % (auto) 0.6 %; Eosinophils # (auto) 0.17 K/uL (0.00-0.50); Hematocrit (blood only) 39.4 % (42.0-52.0); Immature Granulocytes # (auto) 0.02 K/uL (0.01-0.20); Immature Granulocytes % (auto) 0.2 %; Lymphocytes # (auto) 2.09 K/uL (1.20-3.40); Lymphocytes % (auto) 24.8 %; Mean Corpuscular Hemoglobin 29.1 pg (25.0-34.0); Mean Corpuscular Volume 88.3 fL (80.0-100.0); Mean Platelet Volume 9.6 fL (9.4-12.4); Monocytes # (auto) 0.79 K/uL (0.11-0.59); Monocytes % (auto) 9.4 %; Platelet Count 228 K/uL (130-400); RDW Coefficient of Variation 14.8 % (11.5-14.5); RDW Standard Deviation 47.1 fL (36.4-46.3); Red Blood Count 4.46 M/uL (4.70-6.10); White Blood Count 8.42 K/ul (4.8-10.8)
[2024-06-14 09:01] LABS: BUN Creatinine Ratio 27.9 (10-20); C Reactive Protein 1.01 mg/dl (0-0.5); Calcium 8.9 mg/dl (8.6-10.3); Chol HDL Ratio 3.4 (0-5); Creatinine Clr Calc Pharmacy 270.4 ml/min; Magnesium 1.8 mg/dl (1.7-2.4); Potassium 3.8 mmol/L (3.5-5.1)
[2024-06-14 09:17] LABS: Ferritin 234.1 ng/ml (8-388)
[2024-06-14 09:24] LABS: Folate (Folic Acid),Ser orPlas 11.03 ng/ml (>5.38)
[2024-06-14] MEDS ORDERED: fentaNYL citrate PF 100 MCG/2 ML VIAL ONE (11:15)
[2024-06-14] MEDS ORDERED: MIDAZOLAM HCL 1 MG/ML 2ML VIAL ONE (11:15)
[2024-06-14] MEDS ORDERED: LIDOCAINE 2% 2 ML VIAL/AMP(20MG/ML) INFIL ONE ×2 (11:17)
[2024-06-14] MEDS ORDERED: PROPOFOL IV EMULSION 10 MG/ML 20 ML VIAL IV ONE (11:18)
--- NOTE | 2024-06-14 11:29 | History & Physical Bridge Note ---
Date of Service June 14, 2024 History & Physical Bridge Note I have examined the patient, reviewed the History & Physical and in the interval since the performance of the History & Physical I have noted the following changes of clinical significance: no changes noted. The patient will be taken to the OR today for left lower leg wound debridement
[2024-06-14] MEDS: LACTATED RINGER'S 1,000 ML IV SCH (12:36)
--- NOTE | 2024-06-14 12:44 | Anesthesiology Consultation ---
Date of Service June 14, 2024 Assessment & Plan Chart Review Chart Review: Acceptable Risk for Surgery Consults Requested none History Surgery Operation Date: 06/14/24 13:00 Proposed Procedures p Left Leg Wound Debridement - Robbie Colmenares DO Height/Weight Height: 6 ft 3 in Weight: 125.373 kg Allergies Allergy/AdvReac Type Severity Reaction Status Date / Time morphine Allergy Severe Swelling Verified 06/14/24 12:25 of Lip/Tongue/Throat Penicillins Allergy Severe Swelling Verified 06/14/24 12:25 of Lip/Tongue/Throat Medications Home Medications Medication Instructions Recorded Confirmed Last Taken amlodipine 10 mg tablet 10 mg PO DAILY 05/28/24 06/12/24 Unknown atorvastatin 10 mg tablet 10 mg PO HS 05/28/24 06/12/24 Unknown carvedilol 12.5 mg tablet 12.5 mg PO BID 05/28/24 06/12/24 Unknown dapagliflozin propanediol 10 mg 10 mg PO DAILY 05/28/24 06/12/24 Unknown tablet (Farxiga) dulaglutide 4.5 mg/0.5 mL 4.5 mg subcut WK 05/28/24 06/12/24 Unknown subcutaneous pen injector ([facility]) gabapentin 100 mg capsule 100 mg PO TID 05/28/24 06/12/24 Unknown tizanidine 4 mg tablet 4 mg PO Q12 PRN Muscle Pain 05/28/24 06/12/24 Unknown valsartan 320 mg tablet 320 mg PO DAILY 05/28/24 06/12/24 Unknown oxycodone 5 mg tablet 5 - 10 mg (1 - 2 x 5 mg) PO 05/31/24 06/12/24 Unknown .[id number] PRN pain, for initial therapy, max 6 tabs per day #15 tabs doxycycline hyclate 100 mg capsule 100 mg PO BID 21 days #42 caps 06/04/24 06/12/24 Unknown metronidazole 500 mg tablet 500 mg PO Q8H 21 days #63 tabs 06/04/24 06/12/24 Unknown Active Medications Generic Name Dose Route Start Last Admin Trade Name Freq PRN Reason Stop Dose Admin Amlodipine Besylate 10 mg 06/13/24 09:00 06/14/24 08:10 Amlodipine Besylate 5 Mg Tab PO 07/13/24 08:59 10 mg DAILY ELISABET Administration Carvedilol 12.5 mg 06/12/24 23:59 06/14/24 08:10 Carvedilol 12.5 Mg Tab PO 07/12/24 23:58 12.5 mg BID ELISABET Administration Gabapentin 100 mg 06/12/24 23:59 06/14/24 08:11 Gabapentin 100 Mg Cap PO 07/12/24 23:58 100 mg TID ELISABET Administration Meropenem 500 mg/ Syringe 10 mls @ 2 mls/min 06/13/24 15:30 06/14/24 09:22 IV 06/20/24 15:29 2 mls/min Q6H ELISABET Administration Protocol Clindamycin Phosphate 600 mg in 50 mls @ 100 mls/hr 06/13/24 15:30 06/14/24 08:45 Cleocin/D5w IV 06/20/24 15:29 Infused Q8H ELISABET Infusion Sodium Chloride 1,000 mls @ 80 mls/hr 06/14/24 08:00 06/14/24 08:13 Nss IV 06/15/24 07:59 80 mls/hr .[id number] ELISABET Administration Lactated Ringer's 1,000 mls @ 15 mls/hr 06/14/24 12:45 06/14/24 12:36 Lr IV 06/15/24 12:44 15 mls/hr .Q24H ELISABET Administration Insulin Aspart 0 units 06/14/24 06:15 06/14/24 06:15 Insulin Aspart Per Unit Charge SC 07/12/24 23:58 Not Given Q6H ELISABET Insulin Glargine 7 units 06/13/24 09:00 06/14/24 09:07 Lantus Per Unit Charge SQ 07/13/24 08:59 3 units BID ELISABET Administration Oxycodone HCl 10 mg 06/12/24 23:59 06/14/24 08:21 Oxycodone Hcl Ir 5 Mg Tab (Immediate Release) PO 06/26/24 23:58 10 mg Q4H PRN Administration SEVERE Pain (7,8,9,10) Valsartan 320 mg 06/13/24 09:00 06/14/24 08:11 Valsartan 80 Mg Tab PO 07/13/24 08:59 320 mg DAILY ELISABET Administration NPO Date Last Intake of Fluids: 06/13/24 Time Last Intake of Fluids: 22:00 Date Last Intake of Solids: 06/13/24 Time Last Intake of Solids: 17:00 Past Medical History Medical History Hypertension Diabetes mellitus, type 2 Past Family History Family History Father Prostate cancer Diabetes Uncle Prostate cancer Mother Diabetes Heart disease Cancer Brother Nephrolithiasis Past Surgical History Surgical History History of incision and drainage (05/29/24) Left Lower Extremity Wound Debridement(Left) ( sharp debridement including fascia); drainage of lower extremity abcesses x 2- Guille Marie DO No history of previous surgery Social History Smoking Status: Current every day smoker Smoking cigarettes per day: 2 packs Hx Alcohol Use: No Hx Substance Use: No Physical Exam Vital Signs Last Vital Signs Temp 37.0 C 06/14/24 12:17 Pulse 63 06/14/24 12:17 Resp 20 06/14/24 12:17 BP 129/77 06/14/24 12:17 Pulse Ox 94 06/14/24 12:17 O2 Del Method Room Air 06/14/24 12:17 Testing Laboratory Results 06/14/24 07:55 06/14/24 07:55 06/14/24 06/14/24 06/14/24 11:42 05:43 00:29 POC Glucose 142 H 144 H 117 H
[2024-06-14] MEDS ORDERED: ePHEDrine sulfate 50 MG/ML AMP IV PRN (12:49)
[2024-06-14] MEDS ORDERED: HYDROmorphone INJ 2 MG/ML SYR/VIAL IV PRN (12:49)
[2024-06-14] MEDS ORDERED: ATROPINE SULFATE 0.1 MG/ML 10ML SYR IV PRN (12:49)
[2024-06-14] MEDS ORDERED: fentaNYL citrate PF 100 MCG/2 ML VIAL IV PRN (12:49)
[2024-06-14] MEDS ORDERED: ONDANSETRON INJ 2 MG/ML 2 ML VIAL IV PRN (12:49)
[2024-06-14] MEDS ORDERED: PROMETHAZINE HCL 6.25 MG in SODIUM CHLORIDE 0.9% 50 ML IV PRN (12:49)
[2024-06-14] MEDS: BUPIVACAINE 0.5 % 5 MG/1 ML MPF 30ML VIAL ONE (13:42)
--- NOTE | 2024-06-14 13:47 | Operative Report ---
PG Post Operative Report Pre & Post Diagnosis Operation Date: 06/14/24 13:00 Pre-Op Diagnosis: Wound of left lower extremity Post-Op Diagnosis: Wound of left lower extremity I identified the patient and participated in the time-out.: Yes Procedure Operation Date: 06/14/24 13:00 Actual Procedures p Left Leg Wound Debridement(Left) - Robbie Colmenares DO Surgeon Robbie Colmenares DO [employer] NUHA Gregory Estimated Blood Loss 5 Findings See Below Necrotic tissue involving right lower extremity wounds. The wound below the knee undermines at the superior aspect roughly about 1 cm. Specimens None Anesthesia Type General Complications None Indications Necrotic tissue of wound Description of Procedure The patient was brought back to the operating room and placed on the operating room table in supine position. He was connected. And oxygen monitoring, supplemental O2 was provided and the patient was administered general anesthesia. The left lower extremity was prepped and draped in typical sterile fashion and timeout was conducted. The subcutaneous tissue and muscle were debrided using sharp dissection and the to the left lower extremity wounds. The wounds were then dressed with a slightly damp to dry dressing using a slightly damp Kerlix covered with dry gauze and then further wrapped with dry Kerlix. I attest to the content of the Intraoperative Record and any orders documented therein. Any exceptions are noted below.
[2024-06-14] MEDS ORDERED: KETOROLAC TROMETHAMINE 15 MG/ML VIAL IV PRN (14:00)
--- NOTE | 2024-06-14 14:52 | Anesthesiology Progress Note ---
Date of Service June 14, 2024 Anesthesia Post Procedure Vital Signs Vital Signs: Temp Pulse Pulse Resp BP BP Pulse Ox 06/14/24 14:28 36.5 C 68 18 126/77 93 06/14/24 14:20 36.5 C 65 19 110/65 92 06/14/24 14:10 67 22 127/81 91 06/14/24 14:00 78 15 120/77 92 06/14/24 13:53 36.0 C L 68 15 110/73 98 06/14/24 12:17 37.0 C 63 20 129/77 94 06/14/24 07:04 36.5 C 68 16 124/70 93 06/13/24 22:44 06/13/24 19:58 36.7 C 64 18 128/67 92 O2 Del Method O2 Flow Rate 06/14/24 14:28 Nasal Cannula 2 06/14/24 14:20 Room Air 06/14/24 14:10 Room Air 06/14/24 14:00 Room Air 06/14/24 13:53 Room Air 06/14/24 12:17 Room Air 06/14/24 07:04 Room Air 06/13/24 22:44 Room Air 06/13/24 19:58 Room Air Pain Intensity Left Lower Leg: Pain Intensity: 8 Transfer of Care Handoff Completed per policy Notes Mental Status: alert / awake / arousable and participated in evaluation Patient Amnestic to Procedure: Yes Nausea / Vomiting: adequately controlled Pain: adequately controlled Airway Patency, RR, SpO2: stable & adequate BP & HR: stable & adequate Hydration State: stable & adequate Anesthetic Complications: no major complications apparent
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
[2024-06-14] MEDS: ATORVASTATIN 20 MG TAB PO SCH (20:34)
[2024-06-15] MEDS: CYANOCOBALAMIN (B-12) 500 MCG TABLET PO SCH (07:17)
--- NOTE | 2024-06-15 08:27 | Hospitalist Progress Note ---
Date of Service June 15, 2024 Assessment & Plan (1) Wound of left lower extremity: Plan: 58yo male presenting with LLE wound. Initial trauma 05/17 but waited til 05/28 to present to ER here and had necrotic tissue and underwent debridement in OR on 05/29 for drainage [address] Marie and dc on Doxy/Flagyl to complete course but was seen by wound care during home health visit with concerns for progression/infection needing intervention and sent to ER. Notable his procal on admission was 1.84 and no blood cultures noted but was trending down/0.29 prior to discharge but do have concerns for possible issue w/ longer standing infection prior to presentation along with possible inadequate coverage on PO abx w/ doxy/flagyl? Surgery consulted. ID consulted s/p OR 06/14 for debridement necrotic tissue with Dr Colmenares. No drainage/cx sent, but as noted prior OR cx 05/29 with staph auresus, paeniclostridium sordelli, anaerobic gram positive bacilli Abx changed to Meropenem/Clindamycin (allergy to PCN, unable to utilize Zosyn) -- continues on such/will follow up with ID Monday for ongoing recs at [facility] Wound RN consult/to follow-- likely need for wound vac at [facility] for wound healing Continue pain control: tylenol, oxycodone available as well as toradol/dilaudid IV as needed Bowels reported moving, monitor for cdiff/send stool testing if significant diarrhea occurs PT/OT consults pending, patient agreeable to rehab pending [place] zuniga to follow DVT proph: Lovenox SQ resumed per ok w/ discussion Dr Colmenares for today 06/15 and will continue (2) Cellulitis: Plan: improving with abx/debridement as above, elevation encouraged and therapy evals to be undertaken (3) Hypertension: Plan: BP stable w/ pain control Valsartan held for this morning given OR day prior and stable BP 132/83 without significant hypotension and has been resumed but remained on CCB/coreg Continue usual coreg 12.5mg BID, valsartan 320mg daily, amlodipine 10mg daily and will continue to monitor/adj if needed (4) Diabetes mellitus, type 2: Plan: A1c 8.5 this month On farxiga at baseline, on hold for now and utilizing 7 glargine BID w/ SSI and will monitor. AM glu elevated but was checked late/added labs late and ate breakfast but POC have been acceptable and will monitor/adjust as needed Also continues on gabapentin for neuropathy TID- checked/added PO B12 500mcg daily for level 346 given neuropathy to ensure stores replete (5) Traumatic open wound of left lower leg: Plan: as above, s/p repeat debridement and will need wound vac for adequate closure/wound healing Plan DVT proph: lovenox SQ resumed/continued post-op Dispo: continued inpatient stay on IV abx, surgery consulted/following, wound RN to place wound vac on repeat eval hopefully and will need to f/u on PT/OT consults to see about rehab at [facility] as discussed w patient. CM to follow for possible need for any ongoing IV abx at [facility] but hopefully should be able to convert to oral agents. Admission and Anticipated Discharge Date Admission Date: June 13, 2024 Supervising Physician Co-Signing Physician Notes The patient was not seen by me. The chart was reviewed. Case discussed with NUHA Quick. Agree with assessment and plan Subjective Eval this morning, resting in bed. Pain improving, controlled with ordered medications and discussed options if needed. No fever/chills, no chest pain/shortness of breath, abdominal pain. Remains on antibiotics. Wound care to follow, vac planned. Ok'd w/ surgery to resume Lovenox for DVT proph. TO be seen by therapy this weekend, possible rehab at [facility] discussed. Questions/concerns addressed at this time. Physical Exam 2 Physical Exam: General: 58 yo obese male sitting up in bed, reports feeling improved, NAD HEENT: head atraumatic, normocephalic, mmm, trachea midline Resp: even/unlabored, diminished in the bases but no wheezing/rales, 94% on RA CV: RRR, no significant m/r/g, edema to affected leg but cap refill wnl, pulses present GI: +BS, obese, slight distension but SOFT/NT : no waite MSK/Neuro: dressing not removed as just place post op however pulses present/sensation intact, dressing c/d/i without bleeding/shadowing noted and erythema to his upper thigh much improved, less tenderness reported no confused, no slurred speech/facial droop, follows commands/instructions as asked Psych: AOx3, cooperative with exam Results & Data Results & Data Vital Signs (Past 12 Hours) Vital Signs Temp Pulse Resp BP Pulse Ox O2 Del Method 06/15/24 08:01 36.6 C 66 18 132/83 94 Room Air 06/14/24 20:42 36.8 C 72 16 130/70 95 Room Air Laboratory Results 06/15/24 09:36 06/15/24 09:36 Mag 1.7 PG Care Time/CCT Total # of Minutes Spent Total Time Spent with Patient: Total time spent is greater than 50% in coordination of care (as documented) at patient's floor/unit and/or counseling patient: Coding Level of Care Code 89398 SUB INP/OBS CARE 3/50MIN Diagnoses Wound of left lower extremity S81.802A Encounter type: initial encounter Cellulitis L03.90 Site of cellulitis: unspecified site Hypertension I10 Diabetes mellitus, type 2 E11.9 Traumatic open wound of left lower leg, subsequent encounter S81.802D Encounter type: subsequent encounter (1) Wound of left lower extremity Encounter type: initial encounter Qualified Code(s): S81.802A - Unspecified open wound, left lower leg, initial encounter (2) Cellulitis Site of cellulitis: unspecified site Qualified Code(s): L03.90 - Cellulitis, unspecified (5) Traumatic open wound of left lower leg Encounter type: subsequent encounter Qualified Code(s): S81.802D - Unspecified open wound, left lower leg, subsequent encounter
--- NOTE | 2024-06-15 09:25 | Surgery Progress Note ---
Date of Service June 15, 2024 Assessment & Plan (1) Traumatic open wound of left lower leg: Plan POD #1 s/p incision and debridement of left lower extremity wound doing well. Dressing intact. Tolerating diet. No fevers or chills. Continue antibiotics. Will take the dressing down tomorrow. Admission and Anticipated Discharge Date Admission Date: June 13, 2024 Subjective POD #1 s/p incision and debridement of left lower extremity wound. He is doing well. He has some pain. No drainage. Physical Exam Physical Exam: NAD, A&O x 3 AFVSS Left lower extremity dressing clean dry and intact Results & Data Vital Signs (Past 12 Hours) Vital Signs Temp Pulse Resp BP Pulse Ox O2 Del Method 06/15/24 08:01 36.6 C 66 18 132/83 94 Room Air (1) Traumatic open wound of left lower leg Encounter type: subsequent encounter Qualified Code(s): S81.802D - Unspecified open wound, left lower leg, subsequent encounter
[2024-06-15 09:55] LABS: Hematocrit (blood only) 37.7 % (42.0-52.0); Hemoglobin 12.1 g/dl (14.0-18.0); Mean Corpuscular Hemoglobin 29.3 pg (25.0-34.0); Mean Corpuscular Hgb Conc 32.1 g/dL (32.0-36.0); Mean Corpuscular Volume 91.3 fL (80.0-100.0); Mean Platelet Volume 9.9 fL (9.4-12.4); Platelet Count 206 K/uL (130-400); RDW Coefficient of Variation 14.6 % (11.5-14.5); RDW Standard Deviation 48.1 fL (36.4-46.3); Red Blood Count 4.13 M/uL (4.70-6.10); White Blood Count 6.65 K/ul (4.8-10.8)
[2024-06-15] MEDS: ENOXAPARIN INJ 60 MG/0.6 ML SYR SQ SCH (10:05)
[2024-06-15 10:16] LABS: BUN Creatinine Ratio 21.4 (10-20); Calcium 8.5 mg/dl (8.6-10.3); Creatinine Clr Calc Pharmacy 207.6 ml/min; Magnesium 1.7 mg/dl (1.7-2.4); Potassium 4.1 mmol/L (3.5-5.1)
[2024-06-15] MEDS: oxyCODONE HCL IR 5 MG TAB (IMMEDIATE RELEASE) PO PRN (20:39)
[2024-06-16 06:58] LABS: Hematocrit (blood only) 41.1 % (42.0-52.0); Hemoglobin 13.5 g/dl (14.0-18.0); Mean Corpuscular Hemoglobin 29.1 pg (25.0-34.0); Mean Corpuscular Hgb Conc 32.8 g/dL (32.0-36.0); Mean Corpuscular Volume 88.6 fL (80.0-100.0); Mean Platelet Volume 9.8 fL (9.4-12.4); Platelet Count 220 K/uL (130-400); RDW Coefficient of Variation 14.4 % (11.5-14.5); Red Blood Count 4.64 M/uL (4.70-6.10); White Blood Count 7.58 K/ul (4.8-10.8)
[2024-06-16 07:18] LABS: BUN Creatinine Ratio 27.7 (10-20); Calcium 9.1 mg/dl (8.6-10.3); Creatinine Clr Calc Pharmacy 247.4 ml/min; Potassium 4.5 mmol/L (3.5-5.1)
[2024-06-16] MEDS: ENOXAPARIN INJ 40 MG/0.4 ML SYR SQ SCH (07:49)
[2024-06-16] MEDS: MAGNESIUM CHLORIDE W/CALCIUM 64MG DELAYED REL TAB PO SCH (07:52)
--- NOTE | 2024-06-16 08:25 | Hospitalist Progress Note ---
Date of Service June 16, 2024 Assessment & Plan (1) Wound of left lower extremity: Plan: 58yo male presenting with LLE wound. Initial trauma 05/17 but waited til 05/28 to present to ER here and had necrotic tissue and underwent debridement in OR on 05/29 for drainage [address] Marie and [facility] on Doxy/Flagyl to complete course but was seen by wound care during home health visit with concerns for progression/infection needing intervention and sent to ER. Notable his procal on admission was 1.84 and no blood cultures noted but was trending down/0.29 prior to discharge but do have concerns for possible issue w/ longer standing infection prior to presentation along with possible inadequate coverage on PO abx w/ doxy/flagyl? Surgery, ID consulted s/p OR 06/14 for debridement necrotic tissue with Dr Colmenares. --No drainage/cx sent, but as noted prior OR cx 05/29 with staph auresus, paeniclostridium sordelli, anaerobic gram positive bacilli IV Meropenem/Clindamycin continued (allergy to PCN, unable to utilize Zosyn) Blood cx NGTD Pain control effective/continued, moving bowels. Discussed monitoring for any diarrhea Wound RN consulted, wound vac likely 06/17 but had increased drainage/saturation through dressing and messaged surgery who reported did not remove dressing but was told by patient Mihcaela from wound care to be around today. Discussed unless contacted likely not here on the weekend and encouraged nursing to continue dressing changes per surgery instructions which ARE TO BE CHANGED DAILY, but I had seen <24 hours post op yesterday and weren't changed at that time but were still not changed today. Continue w/ dressing instructions in meantime until seen by wound RN in AM Will check ESR/CRP to trend w/ AM labs-- will follow up with ID Monday for ongoing recs at [facility] Remains on Lovenox SQ for DVT proph PT/OT consults rec home w/ HH services, will need ongoing wound care at [facility] (2) Cellulitis: Plan: improving with abx/debridement as above, therapy evals undertaken as outlined continued elevation encouraged, smoking cessation (3) Hypertension: Plan: BP stable w/ pain control 152/77 Continue usual coreg 12.5mg BID, valsartan 320mg daily, amlodipine 10mg daily and will continue to monitor/adj if needed (4) Diabetes mellitus, type 2: Plan: A1c 8.5 this month On farxiga at baseline, on hold Utilizing 7 glargine BID w/ SSI and BSGs have been well controlled and julisa monitor Remains on gabapentin TID for neuropathy, B12 checked and was borderline 346 and started/continues on PO supplementation -- would rx at [facility] (5) Traumatic open wound of left lower leg: Plan: as above, s/p repeat debridement and will need wound vac for adequate closure/wound healing as discussed and should have vac placement in AM hopefully Plan DVT proph: Lovenox SQ Dispo: continued inaptient stay, dressing change by nursing as instructed/ordered, wound RN f/u in AM for vac placement and CM to follow to ensure HH arranged at [facility]. Plans to f/u with ID in AM for abx recs at [facility] and hopefully able to continue maybe doxy + clindamycin for anaerobic coverage given possibly not covering anaerobic agents as well as suspected on Flagyl DIRECTOR OF PLANNING. Admission and Anticipated Discharge Date Admission Date: June 13, 2024 Supervising Physician Co-Signing Physician Notes The patient was not seen by me. The chart was reviewed. Case discussed with NUHA Quick. Agree with assessment and plan Subjective Eval this morning, just got 2 oxy, pain control stable but notable dressing with increased saturation and has not been changed. Plan to discuss with nursing/surgery, possible/likely notify wound RN for instructions as not here today possibly for further instructions or wound vac if able to come in. Nursing to change dressing per wound care instructions from surgery in the meantime. Physical Exam 2 Physical Exam: General: 58 yo obese male sitting up in bed, NAD/just medicated for pain but does have some increased saturation through dressings today (notable not changed since 06/14, instructed nursing to change per surgery instructions until seen wound RN in AM-- notified surgery as covering the weekend) HEENT: head atraumatic, normocephalic, mmm, trachea midline Resp: even/unlabored, diminished in the bases but no wheezing/rales, 94% on RA CV: RRR, no significant m/r/g, edema to affected leg but cap refill wnl, pulses present GI: +BS, obese, slight distension but SOFT/NT : no waite MSK/Neuro: dressing to LLE with saturation to medial aspect with serous fluid, does not appear increased purulance or odor compared to before, no progression of erythema, sensation intact, tenderness stable/improved no confused, no slurred speech/facial droop, follows commands/instructions as asked Psych: AOx3, cooperative with exam Results & Data Results & Data Vital Signs (Past 12 Hours) Vital Signs Temp Pulse Resp BP Pulse Ox O2 Del Method 06/15/24 19:11 36.9 C 77 16 152/77 H 96 Room Air 06/15/24 15:05 36.7 C 68 18 139/82 94 Room Air Intake and Output 06/15/24 06/16/24 06/16/24 22:59 06:59 14:59 Intake Total 50 / 1150 50 / 1150 50 / 50 Balance 50 / 1150 50 / 1150 50 / 50 Intake: IV 50 / 1150 50 / 1150 50 / 50 Clindamycin/D5w 600 mg In 50 ml 50 / 150 50 / 150 50 / 50 @ 100 mls/hr IV Q8H ELISABET Rx#: [id number] Other: # Unmeasured Voids 1 Laboratory Results 06/16/24 06:27 06/16/24 06:27 Mag 2.0 PG Care Time/CCT Total # of Minutes Spent Total Time Spent with Patient: Total time spent is greater than 50% in coordination of care (as documented) at patient's floor/unit and/or counseling patient: Coding Level of Care Code 77192 SUB INP/OBS CARE 3/50MIN Diagnoses Wound of left lower extremity S81.802A Encounter type: initial encounter Cellulitis L03.90 Site of cellulitis: unspecified site Hypertension I10 Diabetes mellitus, type 2 E11.9 Traumatic open wound of left lower leg, subsequent encounter S81.802D Encounter type: subsequent encounter (1) Wound of left lower extremity Encounter type: initial encounter Qualified Code(s): S81.802A - Unspecified open wound, left lower leg, initial encounter (2) Cellulitis Site of cellulitis: unspecified site Qualified Code(s): L03.90 - Cellulitis, unspecified (5) Traumatic open wound of left lower leg Encounter type: subsequent encounter Qualified Code(s): S81.802D - Unspecified open wound, left lower leg, subsequent encounter
--- NOTE | 2024-06-16 10:15 | Surgery Progress Note ---
Date of Service June 16, 2024 Assessment & Plan (1) Traumatic open wound of left lower leg: Plan POD #2 s/p incision and debridement of left lower extremity wound doing well. Dressing intact. Tolerating diet. No fevers or chills. Continue antibiotics. Will take the dressing down with wound care nurse. Admission and Anticipated Discharge Date Admission Date: June 13, 2024 Subjective doing well. Pain in left lower extremity. States that the wound care nurse is coming in today. Physical Exam Physical Exam: NAD, A&O x 3 AFVSS Left lower extremity dressing clean dry and intact Did not remove dressing, will await wound care nurse (1) Traumatic open wound of left lower leg Encounter type: subsequent encounter Qualified Code(s): S81.802D - Unspecified open wound, left lower leg, subsequent encounter
[2024-06-16] MEDS: HYDROmorphone INJ 0.5 MG/0.5 ML SYR IV PRN (10:22)
--- NOTE | 2024-06-17 07:57 | Hospitalist Progress Note ---
Date of Service June 17, 2024 Assessment & Plan (1) Wound of left lower extremity: Plan: 58yo male presenting with LLE wound. Initial trauma 05/17 but waited til 05/28 to present to ER here and had necrotic tissue and underwent debridement in OR on 05/29 for drainage [address] Marie and dc on Doxy/Flagyl to complete course but was seen by wound care during home health visit with concerns for progression/infection needing intervention and sent to ER. Notable his procal on admission was 1.84 and no blood cultures noted but was trending down/0.29 prior to discharge but do have concerns for possible issue w/ longer standing infection prior to presentation along with possible inadequate coverage on PO abx w/ doxy/flagyl? Surgery, ID consulted s/p OR 06/14 for debridement necrotic tissue with Dr Colmenares. --No drainage/cx sent, but as noted prior OR cx 05/29 with staph aureus, paeniclostridium sordelli, anaerobic gram positive bacilli IV Meropenem/Clinda (allergy PCN) Blood cx NGTD Pain control, much improved Wound RN consulted, wound vac to be placed today Discussed w/ ID and messaged with surgery, did not feel and osteo/deeper infection, and can plan for 3-4 weeks of Doxy/Flagyl from date of debridement 06/14 PT/OT HH services, CM to follow DVT proph: Lovenox SQ Plan to dc 06/18 (2) Cellulitis: Plan: improving with abx/debridement as above, therapy evals undertaken as outlined and planned wound vac/wound care at [facility] above. continue elevation/smoking cessation encouraged (3) Hypertension: Plan: BP stable w/ pain control 122/72 Continue usual coreg 12.5mg BID, valsartan 320mg daily, amlodipine 10mg daily (4) Diabetes mellitus, type 2: Plan: A1c 8.5 this month On farxiga at baseline, on hold Utilizing 7 glargine BID w/ SSI and BSGs have been well controlled and julisa monitor Remains on gabapentin TID for neuropathy, B12 checked and was borderline 346 and started/continues on PO supplementation -- would rx at [facility] (5) Traumatic open wound of left lower leg: Plan: as above, s/p repeat debridement and will need wound vac for adequate closure/wound healing as discussed and should have vac placement in AM hopefully Plan DVT proph: Lovenox SQ continued Dispo: continued inpatient stay on IV abx, convert to PO Doxy/Flagyl for 3-4 wk course in AM. Wound vac placement to be done today, continued wound care at [facility] PT/OT rec return home w/ HH services, CM to be notified to ensure arranged for dc AM 06/18 Admission and Anticipated Discharge Date Admission Date: June 13, 2024 Subjective Eval this morning, resting in bed. No acute pain, reports feeling well. Eating/drinking, no abdominal pain/nausea. Discussed messaged ID/surgery this morning to see if needed better source control/clean out or if felt not being adequately covered t determine abx selection at [facility]. Wound RN to see today, wanting to get medicated prior/sent message to wound RN. CM to follow for HH/wound care at [facility], possible dc in AM once plan finalized but wanting to make sure everything taken care of/prevent readmission. Questions/concerns addressed at this time. Michaela to be around soon, will have nursing give medication prior, he usually uses PO but has IV dilaudid/toradol available if needed as well. Physical Exam 2 Physical Exam: General: 58 yo obese male sitting up in bed, NAD, dressings changed this morning, some saturation, waiting for wound RN/pain meds prior to exchange HEENT: head atraumatic, normocephalic, mmm, trachea midline Resp: even/unlabored, diminished in the bases but no wheezing/rales, 94% on RA CV: RRR, no significant m/r/g, edema to affected leg but cap refill wnl, pulses present GI: +BS, obese, slight distension but SOFT/NT : no waite MSK/Neuro: dressing to LLE with scant saturation but significant improvement in surrounding cellulitis, less tenderness, no purulant drainage through dressing today, pulses present/sensation intact Psych: AOx3, cooperative with exam Results & Data Results & Data Vital Signs (Past 12 Hours) Vital Signs Temp Pulse Resp BP Pulse Ox O2 Del Method 06/17/24 07:27 36.6 C 65 20 122/72 95 Room Air 06/17/24 07:14 Room Air Laboratory Results 06/16/24 06:27 06/17/24 06:57 ESR 49 CRP ___ PG Care Time/CCT Total # of Minutes Spent Total Time Spent with Patient: Total time spent is greater than 50% in coordination of care (as documented) at patient's floor/unit and/or counseling patient: Coding Level of Care Code 60054 SUB INP/OBS CARE 3/50MIN Diagnoses Wound of left lower extremity S81.802A Encounter type: initial encounter Cellulitis L03.90 Site of cellulitis: unspecified site Hypertension I10 Diabetes mellitus, type 2 E11.9 Traumatic open wound of left lower leg, subsequent encounter S81.802D Encounter type: subsequent encounter (1) Wound of left lower extremity Encounter type: initial encounter Qualified Code(s): S81.802A - Unspecified open wound, left lower leg, initial encounter (2) Cellulitis Site of cellulitis: unspecified site Qualified Code(s): L03.90 - Cellulitis, unspecified (5) Traumatic open wound of left lower leg Encounter type: subsequent encounter Qualified Code(s): S81.802D - Unspecified open wound, left lower leg, subsequent encounter
[2024-06-17 07:58] LABS: BUN Creatinine Ratio 28.3 (10-20); C Reactive Protein 1.02 mg/dl (0-0.5); Creatinine Clr Calc Pharmacy 252.7 ml/min; Potassium 4.1 mmol/L (3.5-5.1)
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
[2024-06-17 16:47] VITALS: RESP 16
[2024-06-18 07:13] VITALS: O2SAT 95
[2024-06-18 07:16] VITALS: BP 111/68; PULSE 72; TEMP 97.7
[2024-06-18 08:20] LABS: BUN Creatinine Ratio 23.9 (10-20); C Reactive Protein 0.9 mg/dl (0-0.5); Calcium 9.1 mg/dl (8.6-10.3); Creatinine Clr Calc Pharmacy 252.7 ml/min; Potassium 4.1 mmol/L (3.5-5.1)
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
== END 2024-06-18 13:17 | disposition home health service (06) | DRG 571 ==
LOC: 3N 15:56 → ED 15:56 → SUATTDRO 20:22 → 3N 21:09 → SUATTDRO 06-13 17:39